=== PATIENT | male | born 1955 | race Caucasian/White ===

== ENCOUNTER 2016-11-24 12:25 | Inpatient (IN) ==
--- NOTE | 2016-11-24 08:54 | Discharge Summary ---
Date of Encounter: 11/28/16 Time of Encounter: 06:53 - Discharge Diagnosis (1) Closed fracture of right proximal humerus Priority: Primary Status: Acute Qualifiers: Encounter type: initial encounter Fracture alignment: displaced Qualified Code(s): S42.291A - Other displaced fracture of upper end of right humerus, initial encounter for closed fracture (2) Diabetes type 2, controlled Priority: Secondary Status: Chronic Qualifiers: Diabetes mellitus complication status: with unspecified complications Diabetes mellitus residential insulin use: unspecified extermination inspector insulin use status Qualified Code(s): E11.8 - Type 2 diabetes mellitus with unspecified complications (3) Tobacco abuse Priority: Secondary Status: Chronic (4) Hypertension Priority: Secondary Status: Chronic Qualifiers: Hypertension type: unspecified secondary hypertension Qualified Code(s): I15.9 - Secondary hypertension, unspecified; I15 - Secondary hypertension (5) Mood disorder Priority: Secondary Status: Chronic (6) COPD (chronic obstructive pulmonary disease) Priority: Secondary Status: Chronic Qualifiers: COPD type: unspecified COPD Qualified Code(s): J44.9 - Chronic obstructive pulmonary disease, unspecified - Discharge Medications Home Medications: Aspirin 81 mg PO DAILY 11/24/16 [History] Benztropine [Cogentin] 1 mg PO BID 11/24/16 [History] Buspirone HCl [Buspar] 10 mg PO TID 11/24/16 [History] Clotrimazole 1% CRM [Lotrimin 1%] 1 appl TP BID 11/24/16 [History] Diazepam [Valium] 5 mg PO BID 11/24/16 [History] Docusate [Colace] 200 mg PO DAILY 11/24/16 [History] Doxycycline Monohydrate [Mondoxyne Nl] 100 mg PO BID 11/24/16 [History] Ergocalciferol (VITAMIN D2) [Vitamin D] 800 unit PO DAILY 11/24/16 [History] Fluconazole [Diflucan] 200 mg PO DAILY 11/24/16 [History] Hydrochlorothiazide 25 mg PO DAILY 11/24/16 [History] Lisinopril [Zestril] 40 mg PO DAILY 11/24/16 [History] Metformin HCl [Glucophage] 1,000 mg PO DAILY 11/24/16 [History] Metoprolol Tartrate [Lopressor] 50 mg PO BID 11/24/16 [History] Multivitamin [Multi-Day Vitamins] 1 tab PO DAILY 11/24/16 [History] Omeprazole [PriLOSEC] 40 mg PO BID 11/24/16 [History] OxyCODONE Immed Rel [Roxicodone 5 MG] 5 - 10 mg PO Q6HR PRN #30 tablet 11/24/16 [Rx] Perphenazine 16 mg PO BID 11/24/16 [History] Pyridoxine (B-6) [Vitamin B-6] 50 mg PO DAILY 11/24/16 [History] Quetiapine Fumarate [Seroquel] 400 mg PO HS 11/24/16 [History] Sennosides [Senna] 17 mg PO BID 11/24/16 [History] Vitamin E (Dl,Tocopheryl Acet) [Vitamin E] 400 unit PO DAILY 11/24/16 [History] Allergies/Adverse Reactions: Allergies Penicillins Allergy (Verified 11/11/16 16:10) Anaphylaxis sertraline Adverse Reaction (Verified 11/25/16 00:54) See Comments Primary care physician: PCP NO - Patient Status Disposition: Transfer Inpatient Rehab Fac Condition: Good Functional capacity at discharge: independent ambulation Overall status at discharge: patient is progressing back to baseline - Discharge Instructions Follow Up With: Yari Arrington PAC [Physician Electronic Induction Hardener] - 12/01/16 9:00 am NIKKI,PCP [Primary Care Provider] - - Hospital Course Hospital course: Mr. Chavez is a 61 year old male The patient had an uneventful postoperative course. They received antibiotics and physical therapy and were discharged in stable condition. There will follow -up in the office in 2 weeks. - Time Spent with Patient Total time spent providing and/or coordinating discharge services:
[2016-11-24] MEDS ORDERED: *HR* Labetalol 100 MG/20 ML MDV IVP PRN (13:24)
[2016-11-24] MEDS ORDERED: *HR* Promethazine 25 MG/ML VIAL IVP PRN (13:24)
[2016-11-24] MEDS ORDERED: *HR* HYDROmorphone (PF) 1 MG/ML SYRINGE IVP PRN (13:24)
[2016-11-24] MEDS ORDERED: Famotidine 20 MG/2 ML VIAL IVP ONE (13:24)
[2016-11-24] MEDS ORDERED: Gabapentin 300 MG CAPSULE PO STA (13:26)
--- NOTE | 2016-11-24 13:31 | Anesthesia Evaluation PreOp ---
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 Facial Tics) Other Medical History: Diabetes Type II (maintained on Metformin) Anesthesia History: Past Anesthesia (NO prior GA(?)) Alcohol Use: none Drug use: none Medications and Allergies Aspirin 81 mg PO DAILY 11/24/16 [History] Benztropine [Cogentin] 1 mg PO BID 11/24/16 [History] Buspirone HCl [Buspar] 10 mg PO TID 11/24/16 [History] Clotrimazole 1% CRM [Lotrimin 1%] 1 appl TP BID 11/24/16 [History] Diazepam [Valium] 5 mg PO BID 11/24/16 [History] Docusate [Colace] 200 mg PO DAILY 11/24/16 [History] Doxycycline Monohydrate [Mondoxyne Nl] 100 mg PO BID 11/24/16 [History] Ergocalciferol (VITAMIN D2) [Vitamin D] 800 unit PO DAILY 11/24/16 [History] Fluconazole [Diflucan] 200 mg PO DAILY 11/24/16 [History] Hydrochlorothiazide 25 mg PO DAILY 11/24/16 [History] Lisinopril [Zestril] 40 mg PO DAILY 11/24/16 [History] Metformin HCl [Glucophage] 1,000 mg PO DAILY 11/24/16 [History] Metoprolol Tartrate [Lopressor] 50 mg PO BID 11/24/16 [History] Multivitamin [Multi-Day Vitamins] 1 tab PO DAILY 11/24/16 [History] Omeprazole [PriLOSEC] 40 mg PO BID 11/24/16 [History] OxyCODONE Immed Rel [Roxicodone 5 MG] 5 - 10 mg PO Q6HR PRN #30 tablet 11/24/16 [Rx] Perphenazine 16 mg PO BID 11/24/16 [History] Pyridoxine (B-6) [Vitamin B-6] 50 mg PO DAILY 11/24/16 [History] Quetiapine Fumarate [Seroquel] 400 mg PO HS 11/24/16 [History] Sennosides [Senna] 17 mg PO BID 11/24/16 [History] Vitamin E (Dl,Tocopheryl Acet) [Vitamin E] 400 unit PO DAILY 11/24/16 [History] Allergies Penicillins Allergy (Verified 11/11/16 16:10) Anaphylaxis sertraline Adverse Reaction (Unverified 11/21/16 09:48) See Comments - Meds/Allergy Pre-op Review Medications Reviewed: Yes Allergies Reviewed: Yes Beta Blockers on Current Med List: Yes (Metoprolol) If Beta Blockers taken, Date/Time (Last Dose taken): 11/24/16 @ 0600 Anesthesia Results - Labs Laboratory Tests 11/21/16 11/21/16 11/21/16 09:48 09:48 09:48 WBC 9.6 Hgb 12.8 L Hct 36.0 L Plt Count 142 PT 12.8 H INR 1.2 APTT 30.7 Sodium Potassium 4.8 H Chloride 94 L Est Mean Plasma Glucose Hemoglobin A1c 11/21/16 11/22/16 09:48 11:16 WBC Hgb Hct Plt Count PT INR APTT Sodium 129 L Potassium Chloride Est Mean Plasma Glucose 134 Hemoglobin A1c 6.3 H - Imaging EKG: image reviewed Anesthesia Exam O2 Sat Height 1.73 m Height 1.73 m Weight 101.605 kg Weight 101.605 kg O2 Sat by Pulse Oximetry 96 Vital Signs Temp Pulse Resp BP Pulse Ox 98.7 F 94 18 156/98 96 11/24/16 12:58 11/24/16 12:58 11/24/16 12:58 11/24/16 12:58 11/24/16 12:58 Height: 5'7" Weight: 222# bmi = 34 NPO (# of Hours): MNOc - HEENT Pupil (Motor): Pupils equal, EOMI Mallampati: III Teeth: Missing, Poor dentition Oral Opening: Greater than 3 - ASSEMBLER MECHANICAL ORDNANCE LOC: Confused ASSEMBLER MECHANICAL ORDNANCE Motor: Normal LUE, Normal RLE, Normal LLE, Normal Face, Deficit RUE ASSEMBLER MECHANICAL ORDNANCE Sensory: Normal: LUE, RLE, LLE, Face, Deficit: RUE - Cardiac Rhythm: Regular Murmur: None - Pulmonary Breath Sounds: bilateral Clear Respiratory Effort: Symmetrical Anesthesia Assess/Plan ASA Score: 3 (Psychiatric disorder, HTN, Chol, DM, Smoker, COPD) Anesthetic Plan: General, Regional Monitoring Plan: Standard Monitors Recovery Plan: PACU Anes Supervising Prov Stmt: PT seen/evaluated, R&B Discussed, questions answered and consent obtained. Cristina Evangelista MD
[2016-11-24] MEDS ORDERED: Albuterol 2.5 MG/3 ML NEBULIZER ONE (14:01)
[2016-11-24] MEDS ORDERED: Clindamycin 900 MG/50 ML 900 MG/50 ML IV.SOLN IVPB ONE (14:05)
[2016-11-24] MEDS ORDERED: Albuterol 2.5 MG/3 ML NEBULIZER IH ONE (14:05)
[2016-11-24] MEDS ORDERED: Ringers Solution, Lactated 1,000 ML IVC SCH ×2 (14:15→20:22)
--- NOTE | 2016-11-24 15:23 | History & Physical Report ---
Date of Encounter: 11/24/16 Time of Encounter: 15:22 24 Hour HP Update - Instructions Instructions: If the History and Physical is less than 30 days old and was completed prior to A.M. admission and or procedure and has NOT been updated on calendar day of procedure please complete this update prior to performing procedure. - Update Patient reports changes in Medical Condition: No Changes in assessment/condition: No Changes in Medication: No Preop tests/diagnostics Reviewed: Yes Surgery Remains Indicated: Yes Consent for Planned Operative Procedure(s) Verified: Yes - Pre-Operative Checklist Preoperative Checklist Indicated: No Prophylactic Antibiotic Ordered: Yes Is VTE Prophylaxis Indicated?: Yes
[2016-11-24] MEDS ORDERED: ROPIVACAINE HCL/PF 0.5% 30 ML VIAL ONE (15:40)
--- NOTE | 2016-11-24 16:05 | Anesthesia Procedures ---
Date of Encounter: 11/24/16 Time of Encounter: 16:03 Procedures: Anesthesia - Nerve Block Procedure Date: 11/24/16 Time: 16:03 Allergies/Adv Reactions: pcn, sertraline Surgical Procedure: right rev total shoulder Checklist: Correct Patient Identifier, Correct procedure, History checked Correct side: Right Blood Thinner: No Monitor Applied: EKG, BP, Pulse Oximetry Supplemental Oxygen via Nasal Cannula (L/min): 2 Sedation: Versed (mg): 2 Sedation: Fentanyl (mcg): 100 Indication: Post Op Analgesia Pre-op Neuro Deficits: No Block Type: Supraclavicular, Other (SCP) Catheter placed: No Sterile Technique: Yes Ultrasound used: Yes Anatomy identified: Yes Visual spread of Local: Yes Neuro Stimulation: No Blood on Needle Aspiration: No Smooth Injection of Local: Yes Pain with Injection of Local: No Prep: Chlorhexadine Needle: 22 x 50 mm Stimuplex Local: Ropivacaine (30mL 0.5%), Other (decadron 10mg, 0.5% bupivacaine 10mL) Volume (cc): 40 Number of Attempts: 1 Complications: None/effective block Vitals: Vital Signs/O2 Sat/Glucose, Most Recent Temp Pulse Resp BP Pulse Ox 98.7 F 90 18 172/103 92 L 11/24/16 12:58 11/24/16 15:59 11/24/16 12:58 11/24/16 15:59 11/24/16 15:59 Blood Glucose* 113
[2016-11-24] MEDS ORDERED: Lidocaine -MPF 4% 5 ML AMPUL ONE (17:20)
[2016-11-24] MEDS ORDERED: *HR* FentaNYL (PF) 100 MCG/2 ML VIAL ONE (17:20)
[2016-11-24] MEDS ORDERED: *HR* Midazolam HCl 2 MG/2 ML VIAL ONE (17:20)
[2016-11-24] MEDS ORDERED: *HR* Propofol 200 MG/20 ML VIAL IVP ONE (17:20)
[2016-11-24] MEDS ORDERED: Lidocaine -MPF 2% 2 ML VIAL ONE (17:20)
[2016-11-24] MEDS ORDERED: Ondansetron 4 MG/2 ML VIAL ONE (17:25)
--- NOTE | 2016-11-24 17:55 | Orthopedic Operative Note ---
Date of procedure: 11/24/16 Pre-op diagnosis: Displaced comminuted right proximal humerus fracture Post-op diagnosis: same Procedure: Procedure: Right Reverse total shoulder replacment Estimated blood loss: 200 cc Hardware:Arthrex glenoid baseplate: Large , 2 4.5 screws. 1 6.5 screw, glenosphere: 42 lateral , humeral stem: 11 , poly insert: 6 constrained, 6 metal Procedural Notes: Displaced comminuted head split fracture proximal humerus Operative procedure: The patient was brought to the operating room and placed on the operating room table. After general anesthesia was administered the operative shoulder was examined. Findings were noted. The patient was placed in the modified beachchair position. All pressure points were padded appropriately. And the head was stabilized in the neutral position. The operative extremity was prepped and draped in the sterile surgical fashion. The patient received IV antibiotics prior to skin incision. A standard deltopectoral approach was made to the operative shoulder. Incision was made to the skin and subcutaneous tissue,hemo stasis was obtained with Bovie cautery. Using careful blunt dissection the cephalic vein was identified and mobilized medially. The deltopectoral interval was developed and the clavipectoral fascia was incised. The lesser tuberosity was identified and tagged with 2 #2 fiber loops and 2 #2 FiberWire suture. The greater tuberosity was identified and tagged with 6 #5 FiberWire suture. The humeral head was removed. Anterior and posterior Bankart retractors were placed to expose the glenoid. The glenoid guide was seated and the centering hole was made. It was reamed with the appropriate large reamer. The large baseplate was seated and secured with (2) 4.5 screws and one 6.5 screw. The baseplate was irrigated and dried and the 42 lateral was seated and secured with the Pineda taper. The Pineda taper was tested and found to be secure the humerus was redislocated and prepared with the diaphyseal reamers, followed by a broaching process up to the appropriate size 11 in 20 degrees of retro- version. Trial reduction found the shoulder to be relocatable. Trial components were removed and [address] on either side of the bicpital groove and filled with #5 fiberwire sugrue incorporating the biceps, for a later biceps tenodesis and vertical fixation of the tuberosities. The real humeral component was impaced in place in 20 degrees of retroversion. Trial reduction found the shoulder to be relocatable and stable with the 6 metal 6 constrained Lea. Trial component was removed and the real implants were seated and secured the shoulder was reduced. The shoulder had excellent motion and excellent stability and no evidence of dislocation. The greater tuberosity was reduced and repaired to the implant with 2 # 5 fiberwire sutures. the lesser tuberosity was reduced and repaired to this construct with 2 #5 fiberwire sutures. Vertical fixation of the tuberosities was accomplished with the #5 fiberwire sutures in the humeral shaft, incoporating the bices in a box stitch type repair. The deep tissue was irrigated with pulse irrigation. The deltopectoral interval was closed with a running #1 PDS suture, subcutaneous tissue was irrigated and closed with 0 PDS suture, the skin was closed with Dermabond and rosita. The patient was placed in a sterile dressing, abduction brace and extubated. The patient was then transferred to the recovery room in stable condition. Anesthesia: GETA Surgeon: Madhu Lundy Condition: stable Disposition: PACU
[2016-11-24] MEDS ORDERED: *HR* Enoxaparin 30 MG/0.3 ML SYRINGE SQ SCH (18:00)
[2016-11-24 19:00] LABS: Hematocrit 37.4 % (37.5-50.1); Hemoglobin 12.8 g/dL (12.9-16.9)
--- NOTE | 2016-11-24 19:35 | Anesthesia Evaluation Post Op ---
Date of Encounter: 11/24/16 Time of Encounter: 19:34 - Vital Signs Vital Signs: Last Vital Signs Temp 97.3 F L 11/24/16 19:11 Pulse 102 11/24/16 19:21 Resp 20 11/24/16 19:21 BP 149/103 11/24/16 19:21 Pulse Ox 92 L 11/24/16 19:21 - Lungs Lungs: Clear Ascult./Percussion - Airway Airway: Non-obstructed - Cardiovascular Regular Rate - Mental Status Mental Status: Alert & Oriented, Answers Appropriately - Pain Pain Scale: 2 - Nausea Vomiting Nausea Vomiting: Not Present - Hydration Hydration: Tolerates oral liquids - Discharge PostOp Status: Transfer Patient to floor
[2016-11-24] MEDS ORDERED: Dextrose Gel 15 GM PO PRN ×2 (20:22)
[2016-11-24] MEDS ORDERED: *HR* Dextrose 50 % in Water (Syg) 50 ML SYRINGE IVP PRN (20:22)
[2016-11-24] MEDS ORDERED: D5% in Water 1,000 ML IV PRN (20:22)
[2016-11-24] MEDS ORDERED: *HR* OxyCODONE Immed Rel 5 MG TABLET PO PRN (20:22)
[2016-11-24] MEDS ORDERED: Naloxone 0.4 MG/ML INJ IVP PRN (20:22)
[2016-11-24] MEDS ORDERED: Temazepam 15 MG CAPSULE PO PRN (20:22)
[2016-11-24] MEDS ORDERED: Acetaminophen 325 MG TABLET PO PRN (20:22)
[2016-11-24] MEDS ORDERED: Sennosides 8.6 MG TABLET PO PRN (20:22)
[2016-11-24] MEDS ORDERED: Ondansetron 4 MG/2 ML VIAL IVP PRN (20:22)
[2016-11-24] MEDS ORDERED: Albuterol Neb 1.25 MG/3 ML VIAL IH ONE (20:22)
[2016-11-24] MEDS ORDERED: MOM Conc 10 ML UD.LIQ PO PRN (20:22)
[2016-11-24] MEDS ORDERED: Albuterol Neb 1.25 MG/3 ML VIAL ONE (20:44)
[2016-11-24] MEDS ORDERED: Sennosides 8.6 MG TABLET PO SCH (21:00)
[2016-11-24] MEDS ORDERED: Doxycycline 100 MG CAPSULE PO SCH (21:00)
[2016-11-24] MEDS: Clotrimazole 1% CRM 15 GM TUBE TP SCH (23:13)
[2016-11-24] MEDS: Perphenazine 8 MG TABLET PO SCH (23:14)
[2016-11-24] MEDS: diazePAM 5 MG TABLET PO SCH (23:14)
[2016-11-25] MEDS: Clindamycin 900 MG/50 ML 900 MG/50 ML IV.SOLN IVPB SCH ×2 (00:25→08:47)
[2016-11-25] MEDS: *HR* Enoxaparin 30 MG/0.3 ML SYRINGE SQ SCH ×2 (05:52→17:03)
[2016-11-25 06:13] LABS: Hematocrit 36.6 % (37.5-50.1); Hemoglobin 12.6 g/dL (12.9-16.9)
--- NOTE | 2016-11-25 06:39 | Orthopedics Progress Note ---
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 technician insulin use status Qualified Code(s): E11.8 - Type 2 diabetes mellitus with unspecified complications (3) Tobacco abuse Current Visit: Yes Status: Chronic (4) Hypertension Current Visit: Yes Status: Chronic Qualifiers: Hypertension type: unspecified secondary hypertension Qualified Code(s): I15.9 - Secondary hypertension, unspecified; I15 - Secondary hypertension (5) Mood disorder Current Visit: Yes Status: Chronic (6) COPD (chronic obstructive pulmonary disease) Current Visit: Yes Status: Chronic Qualifiers: COPD type: unspecified COPD Qualified Code(s): J44.9 - Chronic obstructive pulmonary disease, unspecified Subjective Interval history: Patient was seen this morning doing well without complaints. Afebrile vital signs stable. Operative extremity: Neurovascularly intact Dressing clean dry and intact positive ecchymosis around shoulder preoperative Calves nontender Assessment and plan: Continue with postoperative care Hematocrit 36 discharge held secondary to placement Objective Vital signs: Vital Signs Temp Pulse Resp BP Pulse Ox 11/25/16 04:00 98.1 F 91 15 125/91 96 11/24/16 22:37 95 11/24/16 21:17 16 97 11/24/16 21:04 97.9 F 94 14 123/96 97 11/24/16 20:40 98.4 F 93 18 135/97 97 11/24/16 20:25 97.6 F 93 20 137/104 96 11/24/16 20:10 97.4 F L 92 20 132/97 97 11/24/16 19:41 91 20 142/98 92 L 11/24/16 19:31 106 20 160/123 92 L 11/24/16 19:21 102 20 149/103 92 L 11/24/16 19:11 97.3 F L 106 20 153/112 92 L 11/24/16 19:01 105 20 145/116 96 11/24/16 18:51 90 20 153/101 96 11/24/16 18:41 97 F L 93 20 106/70 96 11/24/16 18:31 96 20 114/73 96 11/24/16 18:21 96 20 120/77 96 11/24/16 18:11 97.6 F 98 20 129/79 93 L 11/24/16 16:08 89 161/98 92 L 11/24/16 15:59 90 172/103 92 L 11/24/16 12:58 98.7 F 94 18 156/98 96 Intake and Output 11/24/16 11/24/16 11/25/16 15:59 23:59 07:59 Output Total 500 / 500 Balance -500 / -500 Output: Urine 300 / 300 Estimated Blood Loss 200 / 200 Other: Weight 101.605 kg Blood Glucose* 113 120 - Labs CBC & BMP: 11/25/16 05:46 Labs: Abnormal lab results Hgb 12.6 g/dL (12.9-16.9) L 11/25/16 05:46 Hct 36.6 % (37.5-50.1) L 11/25/16 05:46 POC Glucose 120 (58-89) H 11/24/16 18:28 - VTE Documentation of Mechanical Device: Intermittent pneumatic compression device Consult Discharge Plan - Plan Referrals: NO,PCP [Primary Care Provider] -
[2016-11-25] MEDS: Insulin LISPRO 300 UNITS/3 ML VIAL SQ SCH ×3 (08:45→19:05)
[2016-11-25] MEDS: hydroCHLOROthiazide 25 MG TABLET PO SCH (08:46)
[2016-11-25] MEDS: Multivit/Ca/Min/Fe/FA 1 TAB TABLET PO SCH (08:46)
[2016-11-25] MEDS: Aspirin 81 MG TAB.CHEW PO SCH (08:46)
[2016-11-25] MEDS: Lisinopril 20 MG TABLET PO SCH (08:46)
[2016-11-25] MEDS: diazePAM 5 MG TABLET PO SCH ×2 (08:46→20:07)
[2016-11-25] MEDS: Cholecalciferol (D-3) 1,000 UNIT TABLET PO SCH (08:47)
[2016-11-25] MEDS: *HR* Metformin 500 MG TABLET PO SCH (08:47)
[2016-11-25] MEDS: Pyridoxine (B-6) 50 MG TABLET PO SCH (08:47)
[2016-11-25] MEDS: Perphenazine 8 MG TABLET PO SCH ×2 (08:47→20:06)
[2016-11-25] MEDS ORDERED: Fluconazole 100 MG TABLET PO SCH (09:00)
[2016-11-25] MEDS: Clotrimazole 1% CRM 15 GM TUBE TP SCH ×2 (12:03→20:08)
[2016-11-25] MEDS: *HR* OxyCODONE Immed Rel 15 MG TABLET PO PRN ×2 (16:07→20:06)
[2016-11-26] MEDS: *HR* OxyCODONE Immed Rel 15 MG TABLET PO PRN ×4 (00:16→15:37)
[2016-11-26] MEDS: Clotrimazole 1% CRM 15 GM TUBE TP SCH ×3 (04:39→20:59)
[2016-11-26] MEDS: *HR* Enoxaparin 30 MG/0.3 ML SYRINGE SQ SCH ×2 (04:45→17:13)
[2016-11-26 05:15] LABS: Hematocrit 35.1 % (37.5-50.1); Hemoglobin 11.9 g/dL (12.9-16.9)
[2016-11-26] MEDS: Insulin LISPRO 300 UNITS/3 ML VIAL SQ SCH ×3 (09:20→17:11)
[2016-11-26] MEDS: *HR* Metformin 500 MG TABLET PO SCH (09:28)
[2016-11-26] MEDS: Lisinopril 20 MG TABLET PO SCH (09:28)
[2016-11-26] MEDS: diazePAM 5 MG TABLET PO SCH ×2 (09:28→20:53)
[2016-11-26] MEDS: Pyridoxine (B-6) 50 MG TABLET PO SCH (09:28)
[2016-11-26] MEDS: hydroCHLOROthiazide 25 MG TABLET PO SCH (09:29)
[2016-11-26] MEDS: Aspirin 81 MG TAB.CHEW PO SCH (09:29)
[2016-11-26] MEDS: Multivit/Ca/Min/Fe/FA 1 TAB TABLET PO SCH (09:29)
[2016-11-26] MEDS: Cholecalciferol (D-3) 1,000 UNIT TABLET PO SCH (09:29)
--- NOTE | 2016-11-26 09:48 | Orthopedics Progress Note ---
Date of Encounter: 11/26/16 Time of Encounter: 09:47 Subjective Interval history: Pain controlled. No new complaints. Afebrile vital signs stable. Operative extremity: Neurovascularly intact Expected swelling to hand form dependant positioning. Dressing clean dry and intact positive ecchymosis around shoulder preoperative Assessment and plan: Continue with postoperative care. Awaiting placement at the [facility]. Objective Vital signs: Vital Signs Temp Pulse Resp BP Pulse Ox 11/26/16 06:54 98.7 F 98 16 138/76 97 11/26/16 00:42 98.9 F 92 18 126/76 93 L 11/25/16 20:47 98.2 F 92 18 168/101 96 11/25/16 15:26 84 16 121/83 98 11/25/16 14:56 97.6 F 84 16 121/83 98 11/25/16 13:06 96 11/25/16 10:34 97.8 F 86 18 118/88 96 Intake and Output 11/25/16 11/26/16 11/26/16 23:59 07:59 15:59 Intake Total 325 / 325 300 / 300 Balance 325 / 325 300 / 300 Intake: Oral 325 / 325 300 / 300 Other: # Voids 1 1 Blood Glucose* 190 135 - Labs CBC & BMP: 11/26/16 04:28 Labs: Abnormal lab results Hgb 11.9 g/dL (12.9-16.9) L 11/26/16 04:28 Hct 35.1 % (37.5-50.1) L 11/26/16 04:28 POC Glucose 109 (58-89) H 11/25/16 16:19 - VTE Documentation of Mechanical Device: Intermittent pneumatic compression device Consult Discharge Plan - Plan Referrals: NO,PCP [Primary Care Provider] -
[2016-11-26] MEDS: Perphenazine 8 MG TABLET PO SCH ×2 (09:59→20:52)
[2016-11-27] MEDS: *HR* OxyCODONE Immed Rel 15 MG TABLET PO PRN ×3 (02:28→17:06)
[2016-11-27] MEDS: *HR* Enoxaparin 30 MG/0.3 ML SYRINGE SQ SCH ×2 (06:17→17:04)
--- NOTE | 2016-11-27 06:36 | Orthopedics Progress Note ---
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 Qualified Code(s): E11.8 - Type 2 diabetes mellitus with unspecified complications (3) Tobacco abuse Current Visit: Yes Status: Chronic (4) Hypertension Current Visit: Yes Status: Chronic Qualifiers: Hypertension type: unspecified secondary hypertension Qualified Code(s): I15.9 - Secondary hypertension, unspecified; I15 - Secondary hypertension (5) Mood disorder Current Visit: Yes Status: Chronic (6) COPD (chronic obstructive pulmonary disease) Current Visit: Yes Status: Chronic Qualifiers: COPD type: unspecified COPD Qualified Code(s): J44.9 - Chronic obstructive pulmonary disease, unspecified Subjective Interval history: Patient was seen this morning doing well without complaints. Afebrile vital signs stable. Operative extremity: Neurovascularly intact Dressing clean dry and intact positive ecchymosis around shoulder preoperative Calves nontender Assessment and plan: Continue with postoperative care Hematocrit 36 discharge held secondary to placement Objective Vital signs: Vital Signs Temp Pulse Resp BP Pulse Ox 11/27/16 00:39 97.9 F 101 16 119/81 92 L 11/26/16 20:29 98.4 F 92 18 117/80 93 L 11/26/16 14:54 98.7 F 86 18 137/68 96 11/26/16 10:33 98.5 F 94 16 132/73 98 11/26/16 06:54 98.7 F 98 16 138/76 97 Intake and Output 11/26/16 11/26/16 11/27/16 15:59 23:59 07:59 Intake Total 600 / 600 225 / 225 300 / 300 Output Total 600 / 600 Balance 0 / 0 225 / 225 300 / 300 Intake: Oral 600 / 600 225 / 225 300 / 300 Output: Urine 600 / 600 Other: # Voids 1 1 Blood Glucose* 142 146 - Labs CBC & BMP: 11/26/16 04:28 Labs: Abnormal lab results Hgb 11.9 g/dL (12.9-16.9) L 11/26/16 04:28 Hct 35.1 % (37.5-50.1) L 11/26/16 04:28 POC Glucose 137 (58-89) H 11/26/16 17:06 - VTE Documentation of Mechanical Device: Venous foot pump, device Consult Discharge Plan - Plan Referrals: NO,PCP [Primary Care Provider] -
[2016-11-27] MEDS: *HR* Metformin 500 MG TABLET PO SCH (09:18)
[2016-11-27] MEDS: Aspirin 81 MG TAB.CHEW PO SCH (09:19)
[2016-11-27] MEDS: Cholecalciferol (D-3) 1,000 UNIT TABLET PO SCH (09:19)
[2016-11-27] MEDS: Multivit/Ca/Min/Fe/FA 1 TAB TABLET PO SCH (09:19)
[2016-11-27] MEDS: hydroCHLOROthiazide 25 MG TABLET PO SCH (09:19)
[2016-11-27] MEDS: Lisinopril 20 MG TABLET PO SCH (09:20)
[2016-11-27] MEDS: Perphenazine 8 MG TABLET PO SCH ×2 (09:20→21:05)
[2016-11-27] MEDS: diazePAM 5 MG TABLET PO SCH ×2 (09:20→21:05)
[2016-11-27] MEDS: Pyridoxine (B-6) 50 MG TABLET PO SCH (09:20)
[2016-11-27] MEDS: Insulin LISPRO 300 UNITS/3 ML VIAL SQ SCH ×3 (09:22→17:02)
[2016-11-27] MEDS: Clotrimazole 1% CRM 15 GM TUBE TP SCH ×2 (10:31→21:06)
[2016-11-28] MEDS: *HR* Enoxaparin 30 MG/0.3 ML SYRINGE SQ SCH (05:05)
--- NOTE | 2016-11-28 06:54 | Orthopedics Progress Note ---
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 insulin 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 status Qualified Code(s): E11.8 - Type 2 diabetes mellitus with unspecified complications (3) Tobacco abuse Current Visit: Yes Status: Chronic (4) Hypertension Current Visit: Yes Status: Chronic Qualifiers: Hypertension type: unspecified secondary hypertension Qualified Code(s): I15.9 - Secondary hypertension, unspecified; I15 - Secondary hypertension (5) Mood disorder Current Visit: Yes Status: Chronic (6) COPD (chronic obstructive pulmonary disease) Current Visit: Yes Status: Chronic Qualifiers: COPD type: unspecified COPD Qualified Code(s): J44.9 - Chronic obstructive pulmonary disease, unspecified Subjective Interval history: Patient was seen this morning doing well without complaints. Afebrile vital signs stable. Operative extremity: Neurovascularly intact Dressing clean dry and intact positive ecchymosis around shoulder preoperative Calves nontender Assessment and plan: Continue with postoperative care Discharge today Objective Vital signs: Vital Signs Temp Pulse Resp BP Pulse Ox 11/28/16 06:39 97.9 F 90 18 121/83 93 L 11/28/16 00:00 97.6 F 88 17 104/75 99 11/27/16 20:00 97.9 F 92 16 98/74 99 11/27/16 15:49 98.3 F 84 18 116/76 94 L 11/27/16 11:10 98.3 F 89 16 128/83 95 11/27/16 07:24 98.1 F 91 18 131/83 95 Intake and Output 11/27/16 11/27/16 11/28/16 15:59 23:59 07:59 Intake Total 720 / 720 Output Total 375 / 375 200 / 200 Balance 345 / 345 -200 / -200 Intake: Oral 720 / 720 Output: Urine 375 / 375 200 / 200 Other: Meal Dinner Percent of Meal Consumed 50% Blood Glucose* 177 166 - Labs CBC & BMP: 11/26/16 04:28 Labs: Abnormal lab results Hgb 11.9 g/dL (12.9-16.9) L 11/26/16 04:28 Hct 35.1 % (37.5-50.1) L 11/26/16 04:28 POC Glucose 177 (58-89) H 11/27/16 11:09 - VTE Documentation of Mechanical Device: Venous foot pump, device Consult Discharge Plan - Plan Referrals: Yari Arrington, PAC [Physician Plasma Cutting Machine Operator] - 12/01/16 9:00 am NO,PCP [Primary Care Provider] -
[2016-11-28 11:07] VITALS: BP 131/96
== END 2016-11-28 11:39 | DRG 483 ==
LOC: SAMDAY 12:25 → 3NENU 20:20
PROVIDERS: ADMIT Orthopaedic Surgery; ATTEND Orthopaedic Surgery